=== PATIENT | female | born 1965 | race Caucasian/White ===

== ENCOUNTER 2021-03-14 10:43 | Outpatient (RCR) | payer OTHER, SELFPAY ==
[2021-03-14] MEDS: diphenhydrAMINE HCl CAP 25 MG CAPSULE PO (12:05)
[2021-03-14] MEDS: ACETAMINOPHEN 325 MG TABLET 650 MG PO (12:05)
[2021-03-14] MEDS: FAMOTIDINE 20 MG TABLET PO (12:06)
[2021-03-14 12:16] VITALS: BP 137/72; PULSE 76; RESP 20; TEMP 36.8; O2SAT 100
[2021-03-14 13:36] VITALS: BP 145/73
== END 2021-03-14 16:00 | disposition home or self-care (01) ==
LOC: AMCINF 10:43
PROVIDERS: PCP Internal Medicine; Referring Provider Physician Assistant Medical; Visit Provider Internal Medicine Hematology & Oncology
DX: Z23 Encounter for immunization (principal); U07.1 COVID-19; J44.9 Chronic obstructive pulmonary disease, unspecified
CPT/HCPCS: A9270; M0243; Q0243

== ENCOUNTER 2022-04-03 11:40 | Emergency (ER) | payer OTHER, SELFPAY ==
--- NOTE | 2022-04-03 11:52 | ED.URI ---
HPI - URI/Sore Throat General Chief Complaint: Upper Respiratory Infection Stated Complaint: Headache,Fatigue,Body Aches,Stuffy Nose Time Seen by Provider: 04/03/22 12:15 Source: patient and RN notes reviewed Mode of arrival: ambulatory Limitations: no limitations History of Present Illness HPI Narrative: 56-year-old female presents with a 3 to four-day history of cough, congestion, body aches chills, fevers, fatigue, sore throat. She reports taking Tylenol with some relief of her body aches. She reports she has shortness of breath sometimes with coughing. 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 She reports she had 2 negative COVID test MD elicited complaint: cough and sore throat Related Data Home Medications Medication Instructions Recorded Confirmed albuterol sulfate 90 mcg/actuation 2 puff inhalation QID 03/14/21 04/03/22 aerosol inhaler (ProAir HFA) ascorbate calcium (vitamin C) 500 500 mg PO DAILY 04/03/22 04/03/22 mg capsule atorvastatin 20 mg tablet 20 mg DAILY 04/03/22 04/03/22 esomeprazole magnesium 20 mg 20 mg PO DAILY 04/03/22 04/03/22 capsule,delayed release (Nexium) Allergies Allergy/AdvReac Type Severity Reaction Status Date / Time No Known Allergies Allergy Verified 04/03/22 12:09 Review of Systems Review of Systems: CONSTITUTIONAL: Reports malaise, chills,r fever. EYES: Denies visual changes, redness, or discharge. ENT: Reports rhinorrhea, congestion, and sore throat. Denies sinus pain, otalgia CARDIOVASCULAR: Denies chest pain, palpitations, or edema. RESPIRATORY: Reports cough. Denies dyspnea. GASTROINTESTINAL: Denies abdominal pain, nausea, vomiting, diarrhea SKIN: Denies rash or itching. MUSCULOSKELETAL: Reports myalgia. NEUROLOGIC: Denies headache. All systems reviewed & are unremarkable except as noted in HPI and below PMFSH Past Medical History Medical History (Updated 04/03/22 @ 12:38 by Nunu Lackey NP) Bronchitis URI (upper respiratory infection) Family History Family History (Updated 02/06/22 @ 08:11 by Oneida Menendez RN) Mother Asthma Father Cerebrovascular accident Social History Social History (Updated 02/06/22 @ 08:11 by Oneida Menendez RN) Smoking status: Never smoker Alcohol intake: current Drinks per week: 1 Spiritual care concerns: No Comments At time of signature, agree with nursing past medical, surgical, social and family history. There is no relevant family history pertinent to the presenting complaint Exam Narrative: GENERAL: Nontoxic-appearing and in no acute distress. HEAD: Normocephalic EYES: PERRLA, conjunctivae clear ENT: Nares clear, turbinates edematous and erythematous, clear discharge. Mucous membranes moist. TM pearly xiao with dull light reflex bilaterally; no tragal tenderness. Oropharynx not erythematous without lesions. Tonsils not enlarged and without exudate, no drooling, no hoarseness, no trismus, uvula midline. NECK: Supple. No lymphadenopathy CHEST: Clear to auscultation, breath sounds equal. No wheezing, rhonchi, rales, or stridor. No respiratory distress, speaks in full sentences. HEART: Regular rate and rhythm. No murmur heard. SKIN: Warm, dry, no rash. NEURO: Alert and oriented x3. PSYCH: Normal mood and affect Course Course Emergency Course: Patient is aware of diagnosis, understands and agrees to treatment plan. Anticipatory guidance given. Patient agrees to follow-up as directed and is aware of reasons to seek care at the emergency department. Portions of this record may have been created with voice recognition software Level of Care: Express Care Visit Vital Signs Vital signs: Reviewed. MDM - URI/Sore Throat MDM Narrative Medical decision making narrative: Differential diagnosis considered: Lambert virus, strep pharyngitis, allergic rhinitis, upper respiratory tract infection, sinusitis, rhinosinusitis, nasopharyngitis. viral pharyngitis, otitis media
[2022-04-03 11:56] VITALS: BP 113/57; PULSE 90; RESP 18; TEMP 36.2; O2SAT 96
== END 2022-04-03 12:45 | disposition home or self-care (01) ==
PROVIDERS: Emergency Provider Nurse Practitioner; PCP Physician Assistant Medical
DX: R05.9 Cough, unspecified (principal); J02.9 Acute pharyngitis, unspecified; R53.83 Other fatigue; R09.81 Nasal congestion; R51.9 Headache, unspecified
CPT/HCPCS: 87081; 87804; 87880; 99213; G0463

== ENCOUNTER 2023-01-03 17:02 | Emergency (ER) | payer OTHER, SELFPAY ==
[2023-01-03 17:13] VITALS: BP 132/70; PULSE 81; RESP 16; TEMP 36.4; O2SAT 99
--- NOTE | 2023-01-03 17:21 | ED.FEMALEGU ---
HPI - Female Genitourinary General Chief complaint: Urogenital-Female Stated complaint: Female Urogenital Time Seen by Provider: 01/03/23 17:21 Source: patient, RN notes reviewed and old records reviewed Mode of arrival: ambulatory Limitations: no limitations History of Present Illness HPI Narrative: 57-year-old female presents to the [facility] with complaints urinary symptoms. Patient reports urinary frequency for last 2-3 days. Reports the burning and cramps to the suprapubic area started several hours ago. Denies any fever, generalized abdominal pain, chest pain or shortness of breath. Denies any back pain. Related Data Home Medications Medication Instructions Recorded Confirmed albuterol sulfate 90 mcg/actuation 2 puff inhalation QID PRN 03/14/21 01/03/23 aerosol inhaler (ProAir HFA) Shortness Of Breath Or Wheezing ascorbate calcium (vitamin C) 500 500 mg PO DAILY 04/03/22 01/03/23 mg capsule atorvastatin 20 mg tablet 20 mg DAILY 04/03/22 01/03/23 esomeprazole magnesium 20 mg 20 mg PO DAILY 04/03/22 01/03/23 capsule,delayed release (Nexium) montelukast 10 mg tablet 10 mg PO HS 01/03/23 01/03/23 Allergies Allergy/AdvReac Type Severity Reaction Status Date / Time No Known Allergies Allergy Verified 01/03/23 17:07 Review of Systems Review of Systems: All systems reviewed & are unremarkable except as noted in HPI and below Constitutional: Constitutional: Reports no additional constitutional complaints Eyes: Eyes: Reports no additional eye complaints ENT: Reports system reviewed and no additional complaints, except as documented Cardiovascular: Cardiovascular: Reports no additional cardiovascular complaints, Denies chest pain and Denies dyspnea Respiratory: Respiratory: Reports no additional respiratory complaints, Denies chest congestion, Denies cough and Denies dyspnea Gastrointestinal: Gastrointestinal: Reports no additional gastrointestinal complaints, Denies abdominal pain, Denies nausea and Denies vomiting Genitourinary: Genitourinary: Reports as per HPI Musculoskeletal: Musculoskeletal: Reports no additional musculoskeletal complaints Integumentary/Breasts: Skin/Breast: Reports system reviewed and no additional complaints, except as docu Neurologic: Reports system reviewed and no additional complaints, except as documented Psychiatric: Psychiatric: Reports no additional psychiatric complaints Allergic/Immunologic: Allergic/Immunologic: Reports no additional allergic/immunologic complaints PMFSH Past Medical History Medical History Asthma Surgical History Surgical History History of abdominal surgery 1997 abdominoplasty on ventral muscles History of bladder suspension procedure 2015 Family History Family History Mother Asthma Father Cerebrovascular accident Social History Social History Smoking status: Never smoker Second hand tobacco smoke exposure: Yes Alcohol intake: current Drinks per week: 5 Substance use: never Substance use type: does not use Lack of Transportation: No Lack of Food: Never True Current Housing: I Have Housing Concerned About Future Housing: No Difficulty Paying Gas/Electric Bills: No Difficulty Paying for Meds: No Currently Unemployed: No Education: Master's Degree or Higher Difficulty w/ Childcare or Family Care: No Living arrangements: with family Occupation/Education: occupation Gender identity (if verbalized by the patient): Female Spiritual care concerns: No Comments At the time of my signature, I reviewed and agree with the nursing past medical, surgical, social, and family history. There is no relevant family history pertinent to the patient complaint. Exam Const: General: cooperat
== END 2023-01-03 17:38 | disposition home or self-care (01) ==
PROVIDERS: Emergency Provider Nurse Practitioner; PCP Physician Assistant Medical
DX: N30.01 Acute cystitis with hematuria (principal); J45.909 Unspecified asthma, uncomplicated; B96.20 Unspecified Escherichia coli [E. coli] as the cause of diseases classified elsewhere
CPT/HCPCS: 81003; 87077; 87086; 87186; 99213; G0463

== ENCOUNTER 2023-05-10 13:21 | Emergency (ER) | payer OTHER, SELFPAY ==
--- NOTE | 2023-05-10 13:24 | ED.FEMALEGU ---
HPI - Female Genitourinary General Chief complaint: Urogenital-Female Stated complaint: UTI Time Seen by Provider: 05/10/23 13:24 Source: patient Mode of arrival: ambulatory Limitations: no limitations History of Present Illness HPI Narrative: Jessica is a 57-year-old female patient presenting to the clinic today with complaints of possible UTI. She reports she is having burning, frequency, and pressure and the bladder area that started this morning. Also reports over the last week she has had postnasal drip and a sore throat. Denies any fever, body aches, or chills. Related Data Home Medications Medication Instructions Recorded Confirmed albuterol sulfate 90 mcg/actuation 2 puff inhalation QID PRN 03/14/21 01/03/23 aerosol inhaler (ProAir HFA) Shortness Of Breath Or Wheezing ascorbate calcium (vitamin C) 500 500 mg PO DAILY 04/03/22 01/03/23 mg capsule atorvastatin 20 mg tablet 20 mg DAILY 04/03/22 01/03/23 esomeprazole magnesium 20 mg 20 mg PO DAILY 04/03/22 01/03/23 capsule,delayed release (Nexium) montelukast 10 mg tablet 10 mg PO HS 01/03/23 01/03/23 Allergies Allergy/AdvReac Type Severity Reaction Status Date / Time No Known Allergies Allergy Verified 01/03/23 17:07 Review of Systems Review of Systems: Pertinent positives per HPI. Patient denies any fever, chills, rash, headache, visual changes, dizziness, shortness of breath, chest pain, palpitations, nausea, vomiting, diarrhea, constipation, abdominal pain. PMFSH Past Medical History Medical History Asthma Surgical History Surgical History History of abdominal surgery 1997 abdominoplasty on ventral muscles History of bladder suspension procedure 2014 Family History Family History Mother Asthma Father Cerebrovascular accident Social History Social History Smoking status: Never smoker Second hand tobacco smoke exposure: Yes Alcohol intake: current Drinks per week: 5 Substance use: never Substance use type: does not use Lack of Transportation: No Lack of Food: Never True Current Housing: I Have Housing Concerned About Future Housing: No Difficulty Paying Gas/Electric Bills: No Difficulty Paying for Meds: No Currently Unemployed: No Education: Master's Degree or Higher Difficulty w/ Childcare or Family Care: No Living arrangements: with family Occupation/Education: occupation Gender identity (if verbalized by the patient): Female Spiritual care concerns: No Comments At the time of my signature, I reviewed and agree with the nursing past medical, surgical, social, and family history. There is no relevant family history pertinent to the patient complaint. Exam Narrative: General: Well-developed, well nourished, in no apparent distress Head: Normocephalic, atraumatic Eyes: Pupils equally round and reactive to light bilaterally, EOM intact, sclera and conjunctive clear, no discharge, lids normal Ears: TMs intact and clear, ear canals clear, no drainage, grossly hearing normal. Nose: Nares patent, clear nasal discharge, moderate inflammation, no sinus tenderness. Mouth: Oropharynx without lesions or masses, good dentition, MMM. Postnasal drip Neck: Supple, trachea midline, no enlargement of anterior or posterior cervical nodes, no thyroid masses or goiter palpable. Cardio: Regular rate and rhythm, s1 and s2 normal, no murmur appreciated. Resp: Clear to auscultation bilaterally anteriorly and posteriorly, no rhonchi, rales, wheezing or rubs Abdomen: Soft, pliable, bowel sounds present in all quadrants, non-tender to palpation, no organomegly, no CVAT tenderness. Course Course Emergency Course: Portions of this record may have been created with voice recogniti
[2023-05-10 13:31] VITALS: BP 136/74; PULSE 82; RESP 16; TEMP 35.9; O2SAT 99
== END 2023-05-10 13:47 | disposition home or self-care (01) ==
PROVIDERS: Emergency Provider Nurse Practitioner Family; PCP Physician Assistant Medical
DX: N30.01 Acute cystitis with hematuria (principal); R09.82 Postnasal drip; J02.9 Acute pharyngitis, unspecified
CPT/HCPCS: 81003; 87086; 87088; 99213; G0463

== ENCOUNTER 2024-02-15 09:52 | Emergency (ER) | payer OTHER, SELFPAY ==
[2024-02-15 10:03] VITALS: BP 125/79; PULSE 84; RESP 16; TEMP 36.4; O2SAT 95
--- NOTE | 2024-02-15 14:14 | ED.URI ---
HPI - URI/Sore Throat General Chief Complaint: Upper Respiratory Infection Stated Complaint: chest congestion and sinus issues Time Seen by Provider: 02/15/24 10:16 Source: patient, RN notes reviewed and old records reviewed Mode of arrival: ambulatory Limitations: no limitations History of Present Illness HPI Narrative: 58-year-old female to [facility] with complains of productive cough with green/yellow sputum, bilateral ear fullness and chest congestion since February 05. Patient states that she tested positive for COVID on January 29. Patient reports history of asthma. Patient states she has attempted to treat at home with use of a Mucinex DM, Sudafed, ibuprofen. Patient denies shortness of breath, sore throat, headache, chest pain, fever, allergies. Patient resting calmly in exam room in no acute distress. Respirations even and nonlabored. Related Data Home Medications Medication Instructions Recorded Confirmed albuterol sulfate 90 mcg/actuation 2 puff inhalation QID PRN 03/14/21 02/15/24 aerosol inhaler (ProAir HFA) Shortness Of Breath Or Wheezing ascorbate calcium (vitamin C) 500 500 mg PO DAILY 04/03/22 02/15/24 mg capsule esomeprazole magnesium 20 mg 20 mg PO DAILY 04/03/22 02/15/24 capsule,delayed release (Nexium) montelukast 10 mg tablet 10 mg PO HS 01/03/23 02/15/24 Allergies Allergy/AdvReac Type Severity Reaction Status Date / Time No Known Allergies Allergy Verified 02/15/24 09:59 Review of Systems Review of Systems: All systems reviewed & are unremarkable except as noted in HPI and below Constitutional: Constitutional: Reports no additional constitutional complaints Eyes: Eyes: Reports no additional eye complaints ENT: Reports as per HPI and Reports otalgia ( Bilateral) Cardiovascular: Cardiovascular: Reports no additional cardiovascular complaints, Denies chest pain and Denies dyspnea Respiratory: Respiratory: Reports no additional respiratory complaints, Reports change in phlegm color ( green/yellow), Reports chest congestion, Reports cough and Denies dyspnea Musculoskeletal: Musculoskeletal: Reports no additional musculoskeletal complaints Neurologic: Reports system reviewed and no additional complaints, except as documented Psychiatric: Psychiatric: Reports no additional psychiatric complaints PMFSH Past Medical History Medical History Asthma Depression Dyslipidemia GERD (gastroesophageal reflux disease) Surgical History Surgical History History of abdominal surgery 1997 abdominoplasty on ventral muscles History of bladder suspension procedure 2014 Family History Family History Mother Asthma Father Cerebrovascular accident Social History Social History Social History: patient declined SDOH 01/05/24 Smoking status: Never smoker Second hand tobacco smoke exposure: Yes Alcohol intake: current Drinks per week: 5 Substance use: never Substance use type: does not use Lack of Transportation: No Lack of Food: Never True Current Housing: I Have Housing Concerned About Future Housing: No Difficulty Paying Gas/Electric Bills: No Difficulty Paying for Meds: No Currently Unemployed: No Education: Master's Degree or Higher Difficulty w/ Childcare or Family Care: No Living arrangements: with family Occupation/Education: occupation Gender identity (if verbalized by the patient): Female Spiritual care concerns: No Comments At the time of my signature, I reviewed and agree with the nursing past medical, surgical, social, and family history. There is no relevant family history pertinent to the patient complaint. Exam Const: General: cooperative, healthy appearing, no acute distress, al
== END 2024-02-15 10:38 | disposition home or self-care (01) ==
PROVIDERS: Emergency Provider Nurse Practitioner Family; PCP Physician Assistant Medical
DX: H66.93 Otitis media, unspecified, bilateral (principal); J45.909 Unspecified asthma, uncomplicated; E78.5 Hyperlipidemia, unspecified; K21.9 Gastro-esophageal reflux disease without esophagitis
CPT/HCPCS: 99213; G0463